=== PATIENT | female | born 1955 | race Caucasian/White ===

== ENCOUNTER → 2019-02-28 | Outpatient (CLI) | payer OTHER ==
[~2019-02-28] MED LIST: ACET-704 PO; ALCA3DRO EACHEYE; BUDE8.6S NS; CLIN75CA2 PO; CYCL1DRO OP; DIHY1SPR NS; DIPH25CA58 PO; FLUV40CA PO; IBAN150T15 PO; LEVO137T2 PO; PROC5VIA2 IJ; TOPI100T42 PO
--- NOTE | 2019-03-01 08:02 | KCIC ---
MRI Brain without contrast History:Drug-induced headache, tension headache, intractable migraine, nausea and dizziness, light sensitivity Technique: Multiplanar, multisequential noncontrast MR imaging was performed of the brain. Comparison: April 04, 2014 Findings: There is no evidence of recent infarct, intra-axial mass effect, extra-axial fluid collection, midline shift. There is again multifocal [id number] T2 and FLAIR hyperintense signal abnormality of the supratentorial parenchyma bilaterally although somewhat increased, some new and larger foci of the left calderon radiata extending to the lentiform nucleus, also more confluent signal abnormality of the right frontal deep white matter, and also a few new foci of the centrum semiovale bilaterally. There is no significant hemosiderin deposition of the brain parenchyma. There is very minimal patchy fluid of the left mastoid air cells. There is preservation of the major arterial intracranial flow voids at the skull base. There is patchy minimal ethmoid air cell mucosal thickening. Cerebellar tonsils are normal in location. There is preserved marrow signal of the clivus. There is no abnormality of pineal gland or pituitary gland. Impression: 1. There is no evidence of recent infarct. There is multifocal nonspecific T2 and FLAIR hyperintense signal abnormality of the supratentorial parenchyma bilaterally somewhat progressed since 2014 exam. Findings could be due to chronic microvascular ischemic disease, although sequela of an inflammatory demyelinating disease again not excluded. There is no significant variable restricted diffusion as would be more commonly associated with vasculitis. No contrast was given to evaluate for underlying enhancement. MRA Brain History:Drug-induced headache, tension headache, intractable migraine, nausea and dizziness, light sensitivity Technique: 3-D [id number] MR angiography was performed of the brain. Comparison: None Findings: Determination of any degree of stenosis is based on NASCET criteria. There is some motion degradation. Both vertebral arteries constitute the basilar artery. There is visualization of segments of bilateral PICAs, AICAs, and superior cerebellar arteries. There are patent posterior communicating arteries bilaterally. There is aplastic right P1 segment. There is patent anterior communicating artery. There is visualization of the internal carotid arteries bilaterally at the skull base. There is visualization of the anterior, middle, and posterior cerebral arteries bilaterally. No significant intracranial stenosis or aneurysm is identified. Impression: 1. No significant intracranial stenosis or aneurysm is identified. There is -type right posterior cerebral artery. Electronically signed by: Abelardo Franco MD (03/01/2019 7:59 AM) [id number]
== END | disposition home or self-care (01) ==
LOC: KCIC MRI 15:09
PROVIDERS: ATTEND Psychiatry & Neurology Neurology with Special Qualifications in Child Neurology
DX: G44.40 Drug-induced headache, not elsewhere classified, not intractable (principal); G44.209 Tension-type headache, unspecified, not intractable; G43.019 Migraine without aura, intractable, without status migrainosus
CPT/HCPCS: 70544; 70551